=== PATIENT | male | born 1935 | race Caucasian/White ===

== ENCOUNTER 2022-01-07 20:14 | Inpatient (IN) | payer OTHER ==
[~2022-01-07] VITALS: Ht 152.4 cm; Wt 59.0 kg
[2022-01-07 20:15] VITALS: BP 92/39
[2022-01-07] MEDS ORDERED: NOVOLOG MI100 UNIT/2 SQ (20:33)
[2022-01-07] MEDS ORDERED: LATANOPROST 0.2.5 ML OPHTHALMIC (20:34)
[2022-01-07] MEDS ORDERED: TIMOLOL MALEATE5 M2 OPHTHALMIC (20:35)
[2022-01-07] MEDS ORDERED: PROTONIX40 M2 PO (20:44)
[2022-01-07] MEDS ORDERED: ZOCOR20 MG PO (20:46)
[2022-01-07] MEDS ORDERED: CILOSTAZOL 100100 MG (20:47)
[2022-01-07] MEDS ORDERED: PREGABALIN75 MG (20:47)
[2022-01-07] MEDS ORDERED: COSOPT OCUMETER10 ML (20:48)
--- NOTE | 2022-01-07 20:50 | NUR ---
NOTE, [facility] IN [facility]
[2022-01-07 20:54] LABS: ABSOLUTE NEUTROPHILS 4.1 thou/uL (1.4-8.2); BASOPHILS 0.5 % (0.0-2.0); EOSINOPHILS 1.9 % (0.0-3.0); HEMATOCRIT 26.1 % (42.0-52.0); HEMOGLOBIN 8.5 gm/dL (14.0-18.0); MCH 27.2 pg (26.0-34.0); MCHC 32.4 g/dL (28.0-37.0); MONOCYTES 8.2 % (1.0-8.0); PLATELET COUNT 200 thou/uL (150-400); POLYS 72.4 % (36.0-66.0); RBC 3.11 mil/uL (4.50-6.00); RDW 16.6 % (10.5-14.5); WBC 5.7 thou/uL (4.0-11.0)
[2022-01-07 20:54] LABS: URINE BILIRUBIN NEGATIVE (Negative); URINE BLOOD TRACE (Negative); URINE CLARITY CLEAR; URINE COLOR YELLOW; URINE GLUCOSE-RANDOM* TRACE (Negative); URINE KETONES NEGATIVE (Negative); URINE LEUKOCYTES-REFLEX NEGATIVE (Negative); URINE NITRITE-REFLEX NEGATIVE (Negative); URINE PROTEIN (DIPSTICK) NEGATIVE (Negative); URINE SPECIFIC GRAVITY 1.015 (1.005-1.035); URINE UROBILINOGEN 0.2 E.U./dl (0.2-1.0)
[2022-01-07 21:02] LABS: CALCIUM 8.7 mg/dL (8.5-10.1); CREATININE 1.4 mg/dL (0.7-1.3); POTASSIUM 4.3 mmol/L (3.5-5.1)
[2022-01-07 21:08] LABS: AMP/METHAMP Negative (Negative); BARBITURATES Negative (Negative); BENZODIAZEPINES Negative (Negative); COCAINE Negative (Negative); METHADONE Negative (Negative); OPIATES Negative (Negative); PCP Negative (Negative)
[2022-01-07 21:28] VITALS: BP 126/55
--- NOTE | 2022-01-07 22:04 | NUR ---
domonique alexandra [phone]
== END 2022-01-08 | disposition home health service (06) | DRG 871 ==
LOC: ER 20:14 → EROBS 21:47
PROVIDERS: Emergency Medicine; ADMIT Hospitalist; ATTEND Hospitalist
DX: A41.9 Sepsis, unspecified organism (principal); G92.8 Other toxic encephalopathy; J18.9 Pneumonia, unspecified organism; I13.0 Hypertensive heart and chronic kidney disease with heart failure and stage 1 through stage 4 chronic kidney disease, or unspecified chronic kidney disease; E11.649 Type 2 diabetes mellitus with hypoglycemia without coma; Z20.822 Contact with and (suspected) exposure to COVID-19; K21.9 Gastro-esophageal reflux disease without esophagitis; E78.5 Hyperlipidemia, unspecified; I25.10 Atherosclerotic heart disease of native coronary artery without angina pectoris; N18.30 Chronic kidney disease, stage 3 unspecified; Z60.2 Problems related to living alone; E11.51 Type 2 diabetes mellitus with diabetic peripheral angiopathy without gangrene; G89.29 Other chronic pain; S81.801A Unspecified open wound, right lower leg, initial encounter; M25.511 Pain in right shoulder; E11.22 Type 2 diabetes mellitus with diabetic chronic kidney disease; S81.802A Unspecified open wound, left lower leg, initial encounter; R53.81 Other malaise; E11.42 Type 2 diabetes mellitus with diabetic polyneuropathy; I50.9 Heart failure, unspecified; Z88.0 Allergy status to penicillin; S51.811D Laceration without foreign body of right forearm, subsequent encounter; I25.2 Old myocardial infarction; X58.XXXA Exposure to other specified factors, initial encounter; Y93.89 Activity, other specified; Y92.89 Other specified places as the place of occurrence of the external cause; Y99.8 Other external cause status